=== PATIENT | male | born 1955 | race Caucasian/White ===

== ENCOUNTER 2016-10-29 07:33 | Emergency (ER) | payer OTHER ==
[~2016-10-29] VITALS: Ht 170.2 cm; Wt 90.7 kg
[~2016-10-29 07:33] MED LIST: ALLO100T PO; ASPI81TA11 PO; ATEN100T PO; BENA25CA2 PO; CRES20TA PO; FENO160T10 PO; FENO50CA PO; GABA-282 PO; HYDR-3713 PO; HYDR25TAB PO; INSULANT SC; JANU100T PO; KEFL500C7 PO; LEVO25TA5 PO; LEVO50TA45 PO; METF500T PO; NORC7.5T PO; NORCOTAB PO; OMNASPR2; PRED1TABL PO; RAMI5CA PO; SOMA350T PO; TIOT18INH INH; TYLE325T5 PO; VANC1INJ IV; [UNRECOGNIZED DRUG - CODE] PO
[2016-10-29] MEDS ORDERED: LEVO75TA4 PO (07:50)
[2016-10-29] MEDS ORDERED: TRAM1CAP15 PO (07:50)
[2016-10-29] MEDS ORDERED: CYCL10TA PO (07:50)
[2016-10-29] MEDS ORDERED: TRUL10IN SC (07:50)
[2016-10-29] MEDS ORDERED: GABA-283 PO (07:50)
[2016-10-29] MEDS ORDERED: INVO300T PO (07:50)
[2016-10-29] MEDS ORDERED: NORCO, ANEXSIA 5/325MG TABLET (HYDROcodone/ACETAMINOPHEN) PO ONE (08:30)
[2016-10-29] MEDS ORDERED: VALI5TAB PO (08:47)
[2016-10-29] MEDS ORDERED: NORC1TAB4 PO (08:47)
[2016-10-29 09:05] VITALS: BP 109/74
== END 2016-10-29 09:15 | disposition home or self-care (01) ==
LOC: M ED 08:11
DX: S39.012A Strain of muscle, fascia and tendon of lower back, initial encounter (principal); X50.1XXA Overexertion from prolonged static or awkward postures, initial encounter; Y92.096 Garden or yard of other non-institutional residence as the place of occurrence of the external cause; Y93.H9 Activity, other involving exterior property and land maintenance, building and construction; Y99.9 Unspecified external cause status
CPT/HCPCS: 96372; 99282; J3360

== ENCOUNTER → 2017-09-24 | Outpatient (CLI) | payer OTHER | LOC: M RAD 08:16 | DX: D86.1 Sarcoidosis of lymph nodes (principal) | CPT/HCPCS: G0297 ==

== ENCOUNTER → 2019-10-08 | Outpatient (CLI) | payer MEDICARE, OTHER ==
[~2019-10-08] MED LIST changes: -ASPI81TA11 PO; +ASPI81TA78 PO; -CRES20TA PO; +CRES20TA2 PO; +CYCL10TA PO; -GABA-282 PO; +GABA-843 PO; +GABA-845 PO; +HYDR-2541 PO; +HYDR-3715 PO; -HYDR25TAB PO; +INVO300T PO; +KEFL500C17 PO; -KEFL500C7 PO; +LEVO75TA4 PO; -METF500T PO; +METF500T13 PO; +NORC1TAB7 PO; +NORC1TAB8 PO; -NORC7.5T PO; -NORCOTAB PO; +OMNA50SP; -OMNASPR2; +RAMI1CAP24 PO; -RAMI5CA PO; +TRAM1CAP15 PO; +TRUL10IN SC; +VALI5TAB PO
--- NOTE | 2019-10-08 09:11 | REP ---
Clinical: Lung screening. History smoking. Comparison: 09/24/2017, 01/24/2015 Technique: Axial low-dose noncontrast images from the thoracic inlet to the upper abdomen using lung screening technique. Findings: The lung leslie are well-aerated. No consolidation, significant nodule or mass lesion is appreciated. No pleural effusion/reaction or pneumothorax. Tracheobronchial tree is patent. Mediastinum demonstrates mild atherosclerotic changes of the coronary arteries without cardiomegaly. Impression: Lung-RADS category II. No significant nodule or suspicious abnormality. Management recommendations include annual low-dose follow-up evaluation. Electronically Signed by Michael Michelle MD 10/08/2019 09:02 A
== END ==
LOC: M RAD 08:31
PROVIDERS: ATTEND Internal Medicine Pulmonary Disease
DX: Z87.891 Personal history of nicotine dependence (principal)

== ENCOUNTER → 2020-04-28 | Outpatient (CLI) | payer MEDICARE, OTHER ==
[~2020-04-28] MED LIST changes: +CYCL-707 PO; -CYCL10TA PO; +D31000TA2 PO; +ESOM40CA35 PO; +SPIR-10 PO; +SYST1SOL4 OP; +TOPR100T PO; +TOUJ300I2 SC; +TRUL0.5I SC; +VASC1CAP2 PO; +VENTAER INH
== END ==
LOC: M LABSMTC 11:43
PROVIDERS: ATTEND Anesthesiology
DX: Z01.812 Encounter for preprocedural laboratory examination (principal); Z20.828 Contact with and (suspected) exposure to other viral communicable diseases
CPT/HCPCS: C9803; U0003

== ENCOUNTER 2020-05-03 07:58 | Day surgery (SDC) | payer MEDICARE, OTHER ==
[~2020-05-03] VITALS: Ht 170.2 cm; Wt 93.2 kg
[~2020-05-03 07:58] MED LIST changes: +LIDOCAINE 2% 100MG/5ML SDV (FOR ANES.) As Ordered ONE; +NS 1,000 ML IV ONE; +propofoL 200 MG/20 ML VIAL As Ordered ONE
[2020-05-03] MEDS ORDERED: fentaNYL 100 MCG/2 ML INJECTION (J3010) As Ordered ONE (09:14)
--- NOTE | 2020-05-03 09:30 | ROOR ---
Patient Name: Denny Kidd Procedure Date: 05/03/2020 9:09 AM Date of : 1955 Age: 65 Room: [facility] Gender: Male Note Status: Finalized Procedure: Upper GI endoscopy + Balloon Dilatation Indications: Dysphagia Providers: Tommy Alcala MD Referring MD: MALLORIE CARRION MD Requesting Provider: Medicines: Monitored Anesthesia Care Complications: No immediate complications. Procedure: Pre-Anesthesia Assessment: - The heart rate, respiratory rate, oxygen saturations, blood pressure, adequacy of pulmonary ventilation, and response to care were monitored throughout the procedure. The Endoscope was introduced through the mouth, and advanced to the second part of duodenum. The upper GI endoscopy was accomplished without difficulty. The patient tolerated the procedure well. Findings: The Z-line was regular and was found 40 cm from the incisors. A TTS dilator was passed through the scope. Dilation with a 12-13.5-15 mm balloon dilator was performed to 15 mm in the entire esophagus. A small hiatal hernia was present. No other significant abnormalities were identified in a careful examination of the stomach. The exam of the duodenum was otherwise normal. Impression: - Z-line regular, 40 cm from the incisors. - Small hiatal hernia. - Dilation performed in the entire esophagus. - No specimens collected. - The examination was otherwise normal. Recommendation: - Patient has a contact number available for emergencies. The signs and symptoms of potential delayed complications were discussed with the patient. Return to normal activities tomorrow. Written discharge instructions were provided to the patient. - High fiber diet. - Discharge patient to home. - Follow an antireflux regimen. - Continue present medications. - Return to referring physician. - The findings and recommendations were discussed with the patient. Tommy Alcala MD Tommy Alcala MD 05/03/2020 9:30:05 AM Electronically signed by Tommy Alcala MD Number of Addenda: 0 Note Initiated On: 05/03/2020 9:09 AM Estimated Blood Loss: Estimated blood loss: none.
[2020-05-03 09:50] VITALS: BP 105/60
== END 2020-05-03 10:05 | disposition home or self-care (01) ==
LOC: M OPP 07:58
PROVIDERS: ATTEND Internal Medicine Gastroenterology
DX: R13.10 Dysphagia, unspecified (principal); K44.9 Diaphragmatic hernia without obstruction or gangrene
CPT/HCPCS: 43249; J3010

== ENCOUNTER → 2020-12-28 | Outpatient (CLI) | payer MEDICARE, OTHER ==
[~2020-12-28] MED LIST changes: +GABA-282 PO; +GABA-283 PO; -GABA-843 PO; -GABA-845 PO; -LIDOCAINE 2% 100MG/5ML SDV (FOR ANES.) As Ordered ONE; -NS 1,000 ML IV ONE; -propofoL 200 MG/20 ML VIAL As Ordered ONE
--- NOTE | 2020-12-28 11:31 | REP ---
INDICATION: NICOTINE DEPENDENCE. COMPARISON: Multiple the latest 10/08/2019 TECHNIQUE: Axial noncontrast images from the thoracic inlet to the upper abdomen using low-dose lung screening technique (LDCT). As per the protocol only lung window images were sent to the read station for interpretation FINDINGS: The lung leslie are stable. No abnormal nodules, masses, or opacities have developed. There are no pleural or pericardial effusions. Grossly, the imaged upper abdomen and imaged osseous structures are unchanged. Grossly, the mediastinum and pulmonary kiel are unchanged. IMPRESSION: Stable lung rads category [address] low-dose screening CT examination of the lungs. As per the revised Fleischner society criteria recommendation yearly screening may be in order. <Electronically signed by Jose J Farooq > 12/28/20 1516
== END ==
LOC: M RAD 08:20
PROVIDERS: ATTEND Internal Medicine Pulmonary Disease
DX: Z12.2 Encounter for screening for malignant neoplasm of respiratory organs (principal); F17.218 Nicotine dependence, cigarettes, with other nicotine-induced disorders

== ENCOUNTER 2022-01-16 16:42 | Emergency (ER) | payer MEDICARE, OTHER ==
[~2022-01-16] VITALS: Ht 170.2 cm; Wt 91.0 kg
[~2022-01-16 16:42] MED LIST changes: -D31000TA2 PO; +VITA100093 PO
[2022-01-16] MEDS ORDERED: predniSONE 20 MG TAB PO ONE (19:35)
[2022-01-16] MEDS ORDERED: PRED20TA PO (19:36)
[2022-01-16 19:44] VITALS: BP 132/74
== END 2022-01-16 19:46 | disposition home or self-care (01) ==
LOC: M ED 16:42
DX: S16.1XXA Strain of muscle, fascia and tendon at neck level, initial encounter (principal); M47.812 Spondylosis without myelopathy or radiculopathy, cervical region; F17.200 Nicotine dependence, unspecified, uncomplicated; Z98.61 Coronary angioplasty status; Z85.828 Personal history of other malignant neoplasm of skin; Z86.61 Personal history of infections of the central nervous system; E78.00 Pure hypercholesterolemia, unspecified; I10 Essential (primary) hypertension; J44.9 Chronic obstructive pulmonary disease, unspecified; G47.33 Obstructive sleep apnea (adult) (pediatric); Z87.01 Personal history of pneumonia (recurrent); K21.9 Gastro-esophageal reflux disease without esophagitis; Z87.442 Personal history of urinary calculi; E11.9 Type 2 diabetes mellitus without complications; E03.9 Hypothyroidism, unspecified; M54.9 Dorsalgia, unspecified; Z86.2 Personal history of diseases of the blood and blood-forming organs and certain disorders involving the immune mechanism; Z79.4 Long term (current) use of insulin; Z79.84 Long term (current) use of oral hypoglycemic drugs; Z79.82 Long term (current) use of aspirin; Z79.890 Hormone replacement therapy; Z79.899 Other long term (current) drug therapy; Z88.2 Allergy status to sulfonamides; Z88.8 Allergy status to other drugs, medicaments and biological substances
CPT/HCPCS: 72052; 99283; J7512

== ENCOUNTER → 2022-01-24 | Outpatient (CLI) | payer MEDICARE, OTHER ==
[~2022-01-24] MED LIST changes: +PRED20TA PO
== END ==
LOC: M RAD 12:46
PROVIDERS: ATTEND Physician Assistant
DX: F17.218 Nicotine dependence, cigarettes, with other nicotine-induced disorders (principal)

== ENCOUNTER → 2022-06-12 | Outpatient (CLI) | payer MEDICARE, OTHER ==
[~2022-06-12] MED LIST changes: +TIRZ7.5P SC
== END ==
LOC: M LABSMTC 09:48
PROVIDERS: ATTEND Anesthesiology
DX: Z01.812 Encounter for preprocedural laboratory examination (principal); Z11.52 Encounter for screening for COVID-19

== ENCOUNTER 2022-06-14 07:34 | Day surgery (SDC) | payer MEDICARE, OTHER ==
[~2022-06-14] VITALS: Ht 165.1 cm; Wt 88.5 kg
[~2022-06-14 07:34] MED LIST changes: +BSS IRRIG/VANCO(10MG)/TOBRA(5MG)/EPINEPH(1:1000-0.5CC)500ML BAG-ORONLY IR ONE; +CEFUROXIME 1MG/0.1ML INTRACAMERAL INJ As Ordered ONE; +CYCLOPENTOLATE 1% OPHTH SOLN 2 ML BTL OD SCH; +LIDOCAINE 1% 1ML PF SYRINGE (OR EYE CASES) As Ordered ONE; +LIDOCAINE 3.5 % 1ML OPHTH TOPICAL GEL OU ONE; +OFLOXACIN 0.3 % (OCUFLOX) OPTH SOL 5ML OD ONE; +PHENYLEPHRINE 2.5% OPHTH SOL 2ML OD SCH; +PHENYLEPHRINE HCL 10 % OPHTH. SOL 5ML OD PRN; +TROPICAMIDE 1% OPHTH SOLN 2ML OD SCH
[2022-06-14] MEDS ORDERED: fentaNYL 100 MCG/2 ML INJECTION As Ordered ONE (09:41)
[2022-06-14] MEDS ORDERED: MIDAZOLAM INJ 2MG/2ML VIAL (J2250 PER 1MG) As Ordered ONE (09:41)
[2022-06-14] MEDS ORDERED: NALOXONE INJ 0.4MG/1ML VIAL (J2310 PER 1MG) As Ordered ONE (09:57)
[2022-06-14 10:30] VITALS: BP 141/90
[2022-06-14] MEDS ORDERED: NALOXONE INJ 0.4MG/1ML VIAL (J2310 PER 1MG) IV STA (11:03)
== END 2022-06-14 10:34 | disposition home or self-care (01) ==
LOC: M SDC 07:34
PROVIDERS: ATTEND Ophthalmology
DX: H25.11 Age-related nuclear cataract, right eye (principal); I10 Essential (primary) hypertension; E11.9 Type 2 diabetes mellitus without complications; E03.9 Hypothyroidism, unspecified; Z88.2 Allergy status to sulfonamides; Z79.899 Other long term (current) drug therapy; Z79.51 Long term (current) use of inhaled steroids; Z79.82 Long term (current) use of aspirin; Z79.84 Long term (current) use of oral hypoglycemic drugs; Z79.890 Hormone replacement therapy
CPT/HCPCS: 66984; J0697; J2250; J3010; V2632

== ENCOUNTER → 2022-06-19 | Outpatient (CLI) | payer MEDICARE, OTHER ==
[~2022-06-19] MED LIST changes: -BSS IRRIG/VANCO(10MG)/TOBRA(5MG)/EPINEPH(1:1000-0.5CC)500ML BAG-ORONLY IR ONE; -CEFUROXIME 1MG/0.1ML INTRACAMERAL INJ As Ordered ONE; -CYCLOPENTOLATE 1% OPHTH SOLN 2 ML BTL OD SCH; -LIDOCAINE 1% 1ML PF SYRINGE (OR EYE CASES) As Ordered ONE; -LIDOCAINE 3.5 % 1ML OPHTH TOPICAL GEL OU ONE; -OFLOXACIN 0.3 % (OCUFLOX) OPTH SOL 5ML OD ONE; -PHENYLEPHRINE 2.5% OPHTH SOL 2ML OD SCH; -PHENYLEPHRINE HCL 10 % OPHTH. SOL 5ML OD PRN; -TROPICAMIDE 1% OPHTH SOLN 2ML OD SCH
== END ==
LOC: M LABSMTC 10:21
PROVIDERS: ATTEND Anesthesiology
DX: Z01.818 Encounter for other preprocedural examination (principal); Z11.52 Encounter for screening for COVID-19

== ENCOUNTER 2022-06-22 09:10 | Day surgery (SDC) | payer MEDICARE, OTHER ==
[~2022-06-22] VITALS: Ht 167.6 cm; Wt 87.9 kg
[~2022-06-22 09:10] MED LIST changes: +ACETYLCHOLINE OPHTH SOLN 1% 2ML (MIOCHOL-E) As Ordered ONE; +BSS IRRIG/VANCO(10MG)/TOBRA(5MG)/EPINEPH(1:1000-0.5CC)500ML BAG-ORONLY IR ONE; +CEFUROXIME 1MG/0.1ML INTRACAMERAL INJ As Ordered ONE; +CYCLOPENTOLATE 1% OPHTH SOLN 2 ML BTL OS SCH; +LIDOCAINE 1% SDV 5ML VIAL As Ordered ONE; +LIDOCAINE 3.5 % 1ML OPHTH TOPICAL GEL OU ONE; +MIDAZOLAM INJ 2MG/2ML VIAL (J2250 PER 1MG) As Ordered ONE; +OFLOXACIN 0.3 % (OCUFLOX) OPTH SOL 5ML OS ONE; +PHENYLEPHRINE 10% OPHTH SOL 5ML OS PRN; +PHENYLEPHRINE 2.5% OPHTH SOL 2ML OS SCH; +TROPICAMIDE 1% OPHTH SOLN 15ML OS SCH; +fentaNYL 100 MCG/2 ML INJECTION As Ordered ONE
[2022-06-22 11:33] VITALS: BP 109/71
== END 2022-06-22 12:00 | disposition home or self-care (01) ==
LOC: M SDC 09:10
PROVIDERS: ATTEND Ophthalmology
DX: H25.12 Age-related nuclear cataract, left eye (principal)
CPT/HCPCS: 66984; J0697; J2250; J3010; V2632

== ENCOUNTER → 2023-04-02 | Outpatient (CLI) | payer MEDICARE, OTHER ==
[~2023-04-02] MED LIST changes: -ACETYLCHOLINE OPHTH SOLN 1% 2ML (MIOCHOL-E) As Ordered ONE; -BSS IRRIG/VANCO(10MG)/TOBRA(5MG)/EPINEPH(1:1000-0.5CC)500ML BAG-ORONLY IR ONE; -CEFUROXIME 1MG/0.1ML INTRACAMERAL INJ As Ordered ONE; -CYCLOPENTOLATE 1% OPHTH SOLN 2 ML BTL OS SCH; -GABA-283 PO; +GABA-284 PO; -LIDOCAINE 1% SDV 5ML VIAL As Ordered ONE; -LIDOCAINE 3.5 % 1ML OPHTH TOPICAL GEL OU ONE; -MIDAZOLAM INJ 2MG/2ML VIAL (J2250 PER 1MG) As Ordered ONE; -OFLOXACIN 0.3 % (OCUFLOX) OPTH SOL 5ML OS ONE; -PHENYLEPHRINE 10% OPHTH SOL 5ML OS PRN; -PHENYLEPHRINE 2.5% OPHTH SOL 2ML OS SCH; -TROPICAMIDE 1% OPHTH SOLN 15ML OS SCH; -fentaNYL 100 MCG/2 ML INJECTION As Ordered ONE
== END ==
LOC: M PLARAD 13:04
PROVIDERS: ATTEND Family Medicine
DX: R91.1 Solitary pulmonary nodule (principal)
CPT/HCPCS: 78815; A9552

== ENCOUNTER 2023-08-02 10:55 | Day surgery (SDC) | payer MEDICARE, OTHER ==
[~2023-08-02] VITALS: Ht 167.6 cm; Wt 84.1 kg
[~2023-08-02 10:55] MED LIST changes: +ALLO300T2 PO; +FINE20TA PO; +GABA800T4 PO; +IPRA6SP NARES; +LEVO100T5 PO; +NS 1,000 ML IV ONE; +RAMI1CAP22 PO; +TOUJ1.2I SC
[2023-08-02] MEDS ORDERED: LIDOCAINE 2% 100MG/5ML SDV (FOR ANES.) As Ordered ONE ×2 (11:01→11:19)
[2023-08-02] MEDS ORDERED: propofoL 200 MG/20 ML VIAL As Ordered ONE (11:01)
[2023-08-02 12:20] VITALS: TEMP 97.6
[2023-08-02 12:40] VITALS: BP 121/82; O2SAT 97
== END 2023-08-02 13:03 | disposition home or self-care (01) ==
LOC: M OPP 10:55
PROVIDERS: ATTEND Internal Medicine Gastroenterology
DX: Z12.11 Encounter for screening for malignant neoplasm of colon (principal); D12.2 Benign neoplasm of ascending colon; K64.0 First degree hemorrhoids; K31.A0 Gastric intestinal metaplasia, unspecified; K22.89 Other specified disease of esophagus; R13.10 Dysphagia, unspecified; Z79.02 Long term (current) use of antithrombotics/antiplatelets; Z79.4 Long term (current) use of insulin; Z79.51 Long term (current) use of inhaled steroids; Z79.82 Long term (current) use of aspirin; Z79.890 Hormone replacement therapy; Z79.891 Long term (current) use of opiate analgesic; Z79.899 Other long term (current) drug therapy; Z88.1 Allergy status to other antibiotic agents; Z88.2 Allergy status to sulfonamides; Z88.8 Allergy status to other drugs, medicaments and biological substances

== ENCOUNTER → 2023-08-29 | Outpatient (CLI) | payer MEDICARE, OTHER ==
[~2023-08-29] MED LIST changes: +E-Z-GAS II EFFERVESCENT PACKET (SODIUM BICARB./CITRIC ACID/SIMETHICONE) As Ordered ONE; +E-Z-HD 98% w/w 340GM SUSP BTL As Ordered ONE; +E-Z-PAQUE 96% w/w SUSP 176GM BTL As Ordered ONE; -NS 1,000 ML IV ONE
== END ==
LOC: M RAD 08:21
PROVIDERS: ATTEND Internal Medicine Gastroenterology
DX: R13.10 Dysphagia, unspecified (principal); K44.9 Diaphragmatic hernia without obstruction or gangrene; K22.89 Other specified disease of esophagus

== ENCOUNTER → 2023-11-09 | Outpatient (CLI) | payer MEDICARE, OTHER ==
[~2023-11-09] MED LIST changes: -E-Z-GAS II EFFERVESCENT PACKET (SODIUM BICARB./CITRIC ACID/SIMETHICONE) As Ordered ONE; -E-Z-HD 98% w/w 340GM SUSP BTL As Ordered ONE; -E-Z-PAQUE 96% w/w SUSP 176GM BTL As Ordered ONE
== END ==
LOC: M PLAIMG 11:30
PROVIDERS: ATTEND Internal Medicine Pulmonary Disease
DX: R91.8 Other nonspecific abnormal finding of lung field (principal); R59.0 Localized enlarged lymph nodes; R91.1 Solitary pulmonary nodule; J06.9 Acute upper respiratory infection, unspecified

== ENCOUNTER → 2024-02-12 | Outpatient (REF) | payer MEDICARE, OTHER ==
[~2024-02-12] MED LIST changes: -RAMI1CAP22 PO; -RAMI1CAP24 PO; +RAMI2.5C42 PO; +RAMI5CAP60 PO
== END ==
LOC: M SFHCDERM 17:56
PROVIDERS: ATTEND Dermatology
DX: L82.1 Other seborrheic keratosis (principal)

== ENCOUNTER 2024-09-26 07:44 | Day surgery (SDC) | payer MEDICARE, OTHER ==
[~2024-09-26] VITALS: Ht 170.2 cm; Wt 85.1 kg
[~2024-09-26 07:44] MED LIST changes: +B-12100010 PO; +FEXO-112 PO; +GABA-1171 PO; +GABA-1172 PO; +GABA-1635 PO; -GABA-282 PO; -GABA800T4 PO; +MAGN200T PO; +METO1TAB7 PO; +NIAC500T29 PO; +ROSU20TA86 PO; +TIZA2TA PO
[2024-09-26] MEDS ORDERED: LIDOCAINE VISCOUS 2% SOLN 15ML UDC As Ordered ONE (08:10)
[2024-09-26 08:40] VITALS: BP 142/85; O2SAT 97
== END 2024-09-26 08:44 | disposition home or self-care (01) ==
LOC: M OPP 07:44
PROVIDERS: ATTEND Surgery
DX: R13.10 Dysphagia, unspecified (principal)

== ENCOUNTER → 2024-11-26 | Outpatient (CLI) | payer MEDICARE, OTHER ==
[~2024-11-26] MED LIST changes: +ISOVUE-370 76% 100ML VIAL ONE; +PRED-1142 PO; -PRED1TABL PO
== END ==
LOC: M PLAIMG 09:40
PROVIDERS: ATTEND Internal Medicine Pulmonary Disease
DX: R91.8 Other nonspecific abnormal finding of lung field (principal)
CPT/HCPCS: 71260; Q9967

== ENCOUNTER → 2024-12-04 | Outpatient (CLI) | payer MEDICARE, OTHER ==
[~2024-12-04] MED LIST changes: -ISOVUE-370 76% 100ML VIAL ONE
[2024-12-04 15:07] LABS: PLATELET COUNT, AUTOMATED 231 10^3/uL (150-450)
[2024-12-04 15:21] LABS: INR 0.9; PARTIAL THROMBOPLASTIN TIME 36.2 SECONDS (24.8-34.2); PROTHROMBIN TIME 12.5 SECONDS (12.5-14.5)
== END ==
LOC: M LAB 14:31
PROVIDERS: ATTEND Internal Medicine Pulmonary Disease
DX: Z01.812 Encounter for preprocedural laboratory examination (principal); Z79.899 Other long term (current) drug therapy

== ENCOUNTER → 2025-02-10 | Outpatient (CLI) | payer MEDICARE, OTHER ==
[~2025-02-10] VITALS: Ht 170.2 cm; Wt 86.0 kg
[~2025-02-10] MED LIST changes: +FLUO1CRE2
[2025-02-10] MEDS: LIDOCAINE 1% MDV 20 ML VIAL SC STA (09:24)
[2025-02-10 12:25] VITALS: BP 107/66; O2SAT 93
== END ==
LOC: M IRPRO 09:14
PROVIDERS: ATTEND Internal Medicine Pulmonary Disease
DX: C34.32 Malignant neoplasm of lower lobe, left bronchus or lung (principal); R91.8 Other nonspecific abnormal finding of lung field

== ENCOUNTER → 2025-03-24 | Outpatient (CLI) | payer MEDICARE, OTHER | LOC: M PLAIMG 13:15 | PROVIDERS: ATTEND Nurse Practitioner Family | DX: C34.32 Malignant neoplasm of lower lobe, left bronchus or lung (principal) ==

== ENCOUNTER → 2025-06-17 | Outpatient (CLI) | payer MEDICARE, OTHER | LOC: M SOG 08:07 | PROVIDERS: ATTEND Neuromusculoskeletal Medicine, Sports Medicine | DX: M17.11 Unilateral primary osteoarthritis, right knee (principal) ==

== ENCOUNTER → 2025-07-01 | Outpatient (CLI) | payer MEDICARE, OTHER | LOC: M SOG 07:53 | PROVIDERS: ATTEND Neuromusculoskeletal Medicine, Sports Medicine | DX: M25.552 Pain in left hip (principal) ==